=== PATIENT | female | born 1985 | race Hispanic/Latino ===

== ENCOUNTER 2017-08-30 20:21 | Emergency (ER) | payer SELFPAY ==
[2017-08-30 21:28] LABS: Bilirubin Negative (Negative); Blood, Urine Negative (Negative); Glucose, Urine (Dipstick) Negative (Negative); Ketone, Urine Negative (Negative); Nitrite Negative (Negative); Protein, Urine (Dipstick) Negative (Neg-Trace)
[2017-08-30 22:03] LABS: #Eosinphils 0.1 thou/uL (0.0-0.7); #Lymphocytes 2.4 thou/uL (1.20-3.40); #Monocytes 0.4 thou/uL (0.11-0.59); #Neutrophils 2.9 thou/uL (1.40-6.50); %Basophils 0.8 % (0.0-1.0); %Eosinophils 1.6 % (0.0-10.0); %Lymphocytes 40.7 % (21.0-51.0); %Monocytes 6.3 % (0.0-10.0); Hematocrit 26.9 % (36.0-47.0); Mean Platelet Volume 11.7 fL (7.4-10.4); Red Blood Cell (RBC) Count 3.78 mill/uL (4.20-5.40); White Blood Cell (WBC) Count 5.8 thou/uL (4.8-10.8)
[2017-08-30 22:20] LABS: ALT (SGPT) 50 U/L (8-55); AST (SGOT) 59 U/L (5-34); Alkaline Phosphatase 73 U/L (40-150); Anion Gap 8 mmol/L (10-20); BUN (Urea Nitrogen) 13 mg/dL (7.0-18.7); Bilirubin, Total 0.2 mg/dL (0.2-1.2); Calc. Creatinine Clearance 0 mL/min (70-130); Calcium 8.9 mg/dL (7.8-10.44); Carbon Dioxide 25 mmol/L (22-29); Chloride 106 mmol/L (98-107); Estimated GFR-MDRD Greater than 90; Lipase 39 U/L (8-78); Protein, Total 7.1 g/dL (6.0-8.3)
[2017-08-31] MEDS ORDERED: HYDROcodone/Acetaminophen 10/325 mg Tablet ONE (02:03)
== END 2017-08-31 03:04 | disposition home or self-care (01) ==
LOC: ERS 20:21
DX: R10.32 Left lower quadrant pain (principal)
CPT/HCPCS: 36415; 80053; 81003; 81025; 82150; 83690; 85025; 87480; 87491; 87510; 87591; 87660; 99284

== ENCOUNTER 2017-12-30 21:50 | Inpatient (IN) | payer SELFPAY ==
[2017-12-30 23:04] LABS: BHCG - Serum Negative (NEGATIVE); Pregs Control Background? CLEAR/WHITE (CLR/WHITE); Pregs Control Bar Appear? YES (CONTROL BAR)
[2017-12-30] MEDS ORDERED: Morphine 4 MG/ML VIAL ONE (23:10)
[2017-12-30] MEDS ORDERED: Ondansetron ODT 4 MG TAB ONE (23:10)
[2017-12-30] MEDS ORDERED: Acetaminophen 500 MG TAB ONE (23:10)
[2017-12-30 23:11] LABS: ALT (SGPT) 20 U/L (8-55); AST (SGOT) 63 U/L (5-34); Albumin 4.6 g/dL (3.5-5.0); Alkaline Phosphatase 130 U/L (40-150); Anion Gap 15 mmol/L (10-20); BUN (Urea Nitrogen) 8 mg/dL (7.0-18.7); Bilirubin, Total 0.3 mg/dL (0.2-1.2); Calc. Creatinine Clearance 0 mL/min (70-130); Calcium 9.3 mg/dL (7.8-10.44); Carbon Dioxide 18 mmol/L (22-29); Chloride 105 mmol/L (98-107); Estimated GFR-MDRD Greater than 90; Globulin 3.7 g/dL (2.4-3.5); Glucose 89 mg/dL (70-105); Lipase 78 U/L (8-78); Potassium 3.2 mmol/L (3.5-5.1); Protein, Total 8.3 g/dL (6.0-8.3); Sodium 135 mmol/L (136-145)
[2017-12-30 23:20] LABS: #Eosinphils 0.1 thou/uL (0.0-0.7); #Lymphocytes 3.3 thou/uL (1.20-3.40); #Monocytes 0.3 thou/uL (0.11-0.59); #Neutrophils 5.1 thou/uL (1.40-6.50); %Basophils 0.5 % (0.0-1.0); %Eosinophils 0.8 % (0.0-10.0); %Lymphocytes 37.5 % (21.0-51.0); %Monocytes 2.8 % (0.0-10.0); %Neutrophils 58.4 % (42.0-75.0); Hypochromia MODERATE=16-30 cells (100X) (0-5/hpf); MDiff Complete? YES; Mean Corpuscular HGB CONC 31.6 g/dL (32.0-36.0); Mean Corpuscular Hemoglobin 21.7 pg (27.0-31.0); Mean Corpuscular Volume 68.9 fl (81.0-99.0); Mean Platelet Volume 8.2 fL (7.4-10.4); Microcytosis SLIGHT = 6-15 cells (100X) (0-5/hpf); PLT Morphology Comment Appears Adequate; Platelet Count 248 thou/uL (130-400); Polychromasia SLIGHT = 2-3 cells (100X) (0-2/hpf); RBC Distribution Width 17.6 % (11.5-14.5); Red Blood Cell (RBC) Count 4.59 mill/uL (4.20-5.40); Reflex for Review?? YES; White Blood Cell (WBC) Count 8.8 thou/uL (4.8-10.8)
[2017-12-30 23:27] LABS: Bilirubin Negative (Negative); Blood, Urine Small (Negative); Clarity CLEAR (Clear); Glucose, Urine (Dipstick) Negative (Negative); Leukocyte Negative (Negative); Nitrite Negative (Negative); Protein, Urine (Dipstick) Negative (Neg-Trace); Specific Gravity, Urine 1.003 (1.002-1.036); pH, Urine 6.5 (5.0-9.0)
[2017-12-30 23:29] LABS: Bacteria/HPF 4+ HPF (None Seen); Hyaline Casts/LPF 0-3 HYALINE CAST LPF (0-3 Hyaline); RBC/HPF 0-3 HPF (0-3); Squamous Epithelial None Seen HPF (0-3); WBC/HPF 0-3 HPF (0-3)
[2017-12-30] MEDS ORDERED: Ondansetron ODT 8 MG TAB ONE (23:53)
[2017-12-30] MEDS ORDERED: Dicyclomine 20 MG TAB ONE (23:57)
[2017-12-30] MEDS ORDERED: Potassium Chloride 20 MEQ TAB ONE (23:57)
[2017-12-31 04:36] VITALS: BMI 23.9
[2017-12-31] MEDS ORDERED: Sodium Chloride 0.9% 1,000 ML IV SCH (06:24)
[2017-12-31] MEDS ORDERED: Diabetic Tussin 200 MG/10 ML UDCUP PO PRN (07:36)
[2017-12-31] MEDS ORDERED: Loratadine 10 MG TAB PO PRN (07:36)
[2017-12-31] MEDS ORDERED: Loperamide HCl 2 MG CAP PO PRN (07:36)
[2017-12-31] MEDS ORDERED: Chloraseptic Spray 180 ml Bottle PO PRN (07:36)
[2017-12-31] MEDS ORDERED: Artificial Tears 18 DROP/0.9 ML EA EYE PRN (07:36)
[2017-12-31] MEDS ORDERED: HYDROcodone/Acetaminophen 5/325 mg Tablet PO PRN (07:36)
[2017-12-31] MEDS ORDERED: Mag-Al 1200 mg/1200 mg/30 ML UDCUP PO PRN (07:36)
[2017-12-31] MEDS ORDERED: Acetaminophen 325 MG TAB PO PRN (07:36)
[2017-12-31] MEDS ORDERED: Senokot 8.6 MG TAB PO PRN (07:36)
[2017-12-31] MEDS ORDERED: Sodium Chloride 0.65% Nasal 44 ML BOT EA NARE PRN (07:36)
[2017-12-31] MEDS ORDERED: Ondansetron ODT 4 MG TAB PO PRN (07:36)
[2017-12-31] MEDS ORDERED: Milk Of Magnesia 30 ML UDCUP PO PRN (07:36)
[2017-12-31] MEDS ORDERED: Eucerin (Mineral Oil/Petrolatum,White) 30 gm Jar TOP PRN (07:36)
[2017-12-31] MEDS ORDERED: Ondansetron HCl/PF 4 MG/2 ML Vial IVP PRN (07:36)
[2017-12-31] MEDS ORDERED: Zolpidem Tartrate 5 MG TAB PO PRN (07:36)
[2017-12-31] MEDS: Pantoprazole 40 MG VIAL IVP SCH ×2 (08:36→21:35)
[2017-12-31] MEDS: D5 0.9% NS w/ 20 mEq KCl 1,000 ML IV SCH ×3 (08:36→21:45)
[2017-12-31] MEDS ORDERED: Enoxaparin Sodium 40 MG/0.4 ML SYRINGE SC SCH (09:00)
[2017-12-31 09:37] LABS: Iron 28 ug/dL (50-170); Iron Binding Capacity, Total 379 mcg/dL (265-497)
[2017-12-31] MEDS ORDERED: SODIUM CHLORIDE IVPB SCH (11:45)
[2017-12-31] MEDS ORDERED: ADMIXTURE FEE IVPB SCH (11:45)
[2017-12-31] MEDS ORDERED: SODIUM FERRIC GLUCONATE IVPB SCH (11:45)
--- NOTE | 2017-12-31 12:35 | CT ---
PRELIMINARY REPORT/[facility]/EMERGENTY AFTER-HOURS PROCEDURE CT Abdomen and Pelvis With Intravenous Contrast EXAM DATE/TIME: Exam ordered 12/31/2017 1:54 AM CLINICAL HISTORY: 32 years old, female; Pain; Abdominal pain; Epigastric; Prior surgery; Patient HX: Er 5; 32 y/o f wit h presentation of abd pain that started today. Pt reports that pt substantially worsened for approxim ately x1 minute, resolved, and then worsened again. Pt reports nausea and dysuria. Denies any other complaints. Abdomen soft, tender, to the epigastric region, suprapubic. Surgical history of cholecystectomy, ectopic preg, , surgical history of section TECHNIQUE: Axial computed tomography images of the abdomen and pelvis with intravenous contrast. Coronal reforma tted images were created and reviewed. COMPARISON: No relevant prior studies available. FINDINGS: Lung bases: Unremarkable. No mass. No consolidation. ABDOMEN: Liver: Periportal edema. Gallbladder and bile ducts: Prior cholecystectomy. No ductal dilation. Pancreas: Unremarkable. No mass. No ductal dilation. Spleen: Unremarkable. No splenomegaly. Adrenals: Unremarkable. No mass. Kidneys and ureters: Unremarkable. No solid mass. No hydronephrosis. Stomach and bowel: Unremarkable. No obstruction. No mucosal thickening. Appendix: Normal appendix. PELVIS: Bladder: Unremarkable. No mass. Reproductive: 1.4 cm collapsed luteal cyst remnant in the left ovary. ABDOMEN and PELVIS: Intraperitoneal space: Physiologic amount of free fluid in the pelvis. No free air. Bones/joints: No acute fracture. No dislocation. Soft tissues: Unremarkable. Vasculature: Unremarkable. No abdominal aortic aneurysm. Lymph nodes: Unremarkable. No enlarged lymph nodes. IMPRESSION: 1. There is periportal edema which is likely secondary to IV fluid administration given that the IVC is distended; however, nonspecific hepatic dysfunction, such as from hepatitis, can also cause periporta l edema. 2. 1.4 cm collapsed luteal cyst remnant in the left ovary. Thank you for allowing us to participate in the care of your patient. Dictated and Authenticated by: Brian Contreras MD 12/31/2017 2:35 AM Central Time ([place] & [place]) FINAL REPORT CT ABDOMEN AND PELVIS WITH CONTRAST: Date: 12/31/17 HISTORY: Nausea, vomiting, abdominal pain, and hypotension. COMPARISON: Exam from 2013. FINDING/IMPRESSION: Findings and impression are concordant with the preliminary report by Femi. POS: [facility]
[2017-12-31] MEDS ORDERED: Morphine 4 MG/ML VIAL IV PRN (12:42)
--- NOTE | 2017-12-31 13:10 | HP ---
PRIMARY CARE PHYSICIAN: [place] call admission. REASON FOR ADMISSION: Abdominal pain, intractable nausea, vomiting, dehydration, hypotension. 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 The patient was predominantly having epigastric pain, burning in nature and some cramps. e patient was also in menstrual period. She was experiencing back pain as well. She tried her home medication, which was not helping. She took Tylenol No. 3 without any significant relief, but after that her pain had gotten worse. She was also having nausea and vomiting, and she was not able to torey p down. She was also experiencing dysuria, but she did not notice any hematuria. She did not have a ny fever or chills. She denies any antibiotic exposure. She denies any diarrhea. She denies any me agustin, hematochezia or hematemesis. She denies any flu-like illness. She denies any recent sick expo sures. She denies any recent travel. She does not have any drug abuse history. She denies any [facility] herbal medication. She denies any similar problem in the past. She never had any blood transfusi on in the past. She denies any recent viral infection. ALLERGIES: The patient denies any drug allergy. CURRENT HOME MEDICATIONS: The patient is not taking any prescribed or non-prescribed medication. e patient is also not taking any iron supplement. She took Tylenol No. 3, which she had from past, b ut the patient reports that she usually does not take any medication unless absolutely necessary. REVIEW OF SYSTEMS: Please see my HPI for pertinent positive and negative. All other review of syste m reviewed and negative except as mentioned in the HPI. Constitutional: Weight loss or gain, ability to conduct usual activities. Skin: Rash, itching. Eyes: Double vision, pain. ENT/Mouth: Nose bleeding, neck stiffness, pain, tenderness. Cardiovascular: Palpitations, dyspnea on exertion, orthopnea. Respiratory: Shortness of breath, wheezing, cough, hemoptysis, fever or night sweats. Gastrointestinal: Poor appetite, abdominal pain, heartburn, nausea, vomiting, constipation, or diarrhea. Genitourinary: Urgency, frequency, dysuria, nocturia. Musculoskeletal: Pain, swelling. Neurologic/Psychiatric: Anxiety, depression. Allergy/Immunologic: Skin rash, bleeding tendency. PAST MEDICAL HISTORY: Chronic iron deficiency anemia. Normally runs low blood pressure. PAST SURGICAL HISTORY: Cholecystectomy, surgery for ectopic , x3. PAST PSYCHIATRIC HISTORY: Reviewed and negative. SOCIAL HISTORY: The patient is and lives at home with her family. No history of tobacco, al cohol or illicit drug abuse. FAMILY HISTORY: No strong family history of premature coronary artery disease, stroke or cancer. EMERGENCY ROOM COURSE: The patient was given morphine 4 mg IV push and IV fluid 2 liter, potassium c hloride 40 mEq, Bentyl 20 mg p.o. Zofran 8 mg and 4 mg, and Tylenol 1 gram. PHYSICAL EXAMINATION: VITAL SIGNS: On arrival, blood pressure 92/60, pulse 65, respiratory rate 18, temperature 97.8, satu ration 100% on room air, weight 52.2 kilograms. GENERAL: The patient is currently alert, awake, no obvious acute distress. HEAD: Normocephalic, atraumatic. EYES: Pupils round, reactive to light. Extraocular muscle intact. ENT: Oropharynx within normal limits, somewhat dry appearing mucous membrane, no oral lesion, no pha ryngeal erythema, no exudate. NECK: Supple, no JVD, no thyromegaly, no carotid bruit, no jugular venous distention. LUNGS: Clear to auscultation without any rhonchi or rales. CARDIAC: S1, S2 regular without any murmur. ABDOMEN: The patient does not have any Oreilly sign. She has mild discomfort in epigastric region on deep palpation. She does not have any suprapubic tenderness. She does not have any peritoneal sign s, guarding, rigidity. Her bowel sounds present. No organ is palpable. BACK: Unremarkable. No CVA tenderness. EXTREMITIES: Upper extremity: Passive movements of all joints are normal. Lower extremities: No e jacob. Good peripheral pulsation. SKIN: No skin rash. HEMATOLOGICAL: No lymphadenopathy. PSYCHIATRIC: Normal affect. SIGNIFICANT LABS: 1. gambling monitor showing normal sinus rhythm without any ischemic changes. test negat jeffrey. Lipase 78. 2. BMP: Sodium 135, potassium 3.2, chloride 105, carbon dioxide 18, anion gap 15, BUN 8, creatinine 0.73, glucose 89, calcium 9.3. 3. LFT: Protein 8.3, albumin 4.6, AST 63, ALT 20, alkaline phosphatase 130. CBC: WBC 8.8, hemoglo bin 12.0, MCV 68.9, platelet 248. Urinalysis showing blood small and bacteria 4+. ASSESSMENT AND PLAN: 1. Acute abdominal pain, predominantly epigastric region associated with nausea and vomiting. At th is point, etiology is uncertain. CT of the abdomen and pelvis is obtained and reviewed by me, but I am not able to find any acute process. The patient does not have any surgical abdomen. The patient will be given Protonix 40 mg IV q.12 hourly. GI already consulted by ER physician. We will control her pain with morphine p.r.n. basis if needed. 2. Iron deficiency anemia. This patient has hemoglobin 10.0 and MCV low. Iron study done today and it is consistent with iron deficiency anemia. The patient will need ferrous sulfate 325 mg p.o. b.i .d. upon discharge and we will give her one dose of ferric gluconate. Most likely the patient's anem ia is related with chronic blood loss with her menstrual period and poor p.o. iron supplementation. 3. Dehydration. The patient will be given gentle IV fluid and we will repeat labs tomorrow. 4. Mild hyponatremia, hypochloremia, and mild metabolic acidosis likely related with dehydration. T he patient will be given IV fluid with potassium and will repeat labs tomorrow. 5. Asymptomatic bacteriuria. Currently, the patient is menstrual period. She does not have any fev er and does not have any obvious urinary tract infection symptoms. We will send urine culture only a nd avoid antibiotic therapy at this point. 6. Intractable nausea and vomiting. We will treat with Protonix as well as nausea, vomiting with Zo bola on p.r.n. basis. We will monitor for her tolerance to p.o. and then we will consider discharge. 7. Mild transaminitis. CT abdomen was obtained, official report is pending. At this point, the pat ient's LFT is not supportive of acute hepatitis. We will repeat LFTs tomorrow. 8. Deep venous thrombosis prophylaxis. The patient only needs SCD boots. We will avoid Lovenox bec ause of anemia and menstrual period. The patient is advised to ambulate herself in hospital. The pa tient is low risk for deep venous thrombosis. 9. Gastrointestinal prophylaxis. The patient is already on Protonix therapy. 10. Code status: The patient is FULL CODE. The patient's is surrogate decision maker. Disposition plan based on clinical course. We are expecting patient's stay in hospital for more than 24 hours. Plan of care discussed with the patient and her bedside.
[2017-12-31] MEDS ORDERED: ISOVUE-370 76%-LOCM 1 ML ONE (14:12)
--- NOTE | 2017-12-31 18:38 | CON ---
DATE OF CONSULTATION: 12/31/2017 REQUESTING PHYSICIAN: Dr. Friedman. REASON FOR CONSULTATION: Abdominal pain. HISTORY OF PRESENT ILLNESS: Rosa Maria Bonner is a very pleasant 32-year-old woman with no significant pas t medical history. She does have a history of cholecystectomy as well as ectopic removal a nd 3 C-sections. She has this history of chronic iron deficiency anemia which has been attributed to menstrual losses as well. She does not take any medications. She has no prior gastrointestinal his tory. She says she was doing well in her normal state of health until late yesterday. She was havin g some lower abdominal cramping discomfort from having started her menses and she took a Tylenol #3. Shortly thereafter, she started feeling some dysphoria and then began to have some acute burning and tightness pain in the epigastrium. This waxed and waned for several hours, but then became signific antly more severe. She started having nausea and multiple episodes of emesis, which prompted her pre sentation to the emergency department, she had several more episodes of emesis in the ER, she has bee n treated now with antiemetics and IV fluids. Over the past 6-8 hours and feeling a lot better, she is getting her appetite back. No abdominal discomfort at this time. Lab evaluation demonstrates her chronic anemia with hemoglobin 10 which is actually a bit above her baseline. She is iron deficient with a ferritin 4.89, AST is mildly elevated at 63 with otherwise normal LFTs, normal lipase. A CT of the abdomen and pelvis was performed which just showed some periportal edema which is likely secon deepak to IV fluid administration was otherwise negative. The patient has no other complaints. She herrera s been afebrile. She has been hemodynamically stable. REVIEW OF SYSTEMS: Full review of systems including constitutional, head, eyes, ears, nose, throat, GI, , cardiovascular, respiratory, musculoskeletal, and neurologic systems is negative except as no luke in HPI. PAST MEDICAL HISTORY: Cholecystectomy, ectopic removal, x3, iron deficiency anem ia. ALLERGIES: No known drug allergies. OUTPATIENT MEDICATIONS: None. INPATIENT MEDICATIONS: Tylenol p.r.n., Protonix 40 mg IV q.12 hours and Zofran p.r.n. FAMILY HISTORY: Noncontributory. SOCIAL HISTORY: No smoking, alcohol, or drug use. PHYSICAL EXAMINATION: VITAL SIGNS: Temperature 97.7, pulse 62, blood pressure 93/58, 99% oxygen saturation on room air. GENERAL: A 32-year-old woman lying in bed comfortably in no acute distress. SKIN: No jaundice, no rash visible or palpable. EYES: No scleral icterus. Extraocular movements are intact. ENT: Mucous membranes moist, no oral lesions. LYMPH: No submandibular, supraclavicular lymphadenopathy. THYROID: Nontender to palpation. HEART: Regular rate and rhythm. LUNGS: Clear to auscultation bilaterally. ABDOMEN: Bowel sounds present, soft and nontender to palpation throughout. EXTREMITIES: No peripheral edema. VESSELS: Radial pulses 2+ bilaterally. NEUROLOGICAL: Cranial nerves II-XII intact bilaterally. No focal deficits. LABORATORY STUDIES: WBC 8.8, hemoglobin 10.0, MCV 68.9, platelets 248, BUN 8, creatinine 0.73. Ferr itin 4.89. Iron 28, TIBC 379. Serum test negative. Lipase normal at 78, total bilirubin 0.3, alkaline phosphatase 130, AST 63, ALT 20, albumin 4.6. IMAGING STUDIES: CT of the abdomen and pelvis showed some periportal edema which is likely secondary to IV fluid administration. CT is otherwise negative. ASSESSMENT AND PLAN: 1. Acute epigastric pain. 2. Acute nausea and vomiting. 3. Chronic iron deficiency anemia. The etiology of the patient's acute symptoms is unknown. This seems to come on right after taking Ty lenol #3, though she has taken this before without such symptoms, especially given her chronic iron d eficiency anemia, I think it would be reasonable to perform EGD at some point to rule out peptic ulce r disease. We will plan for EGD tomorrow morning. Please have the patient n.p.o. after midnight. A gree with the empiric PPI in the meantime. Thank you for the consultation. Please call with questions or concerns.
[2018-01-01 05:15] LABS: #Eosinphils 0.1 thou/uL (0.0-0.7); #Lymphocytes 2.3 thou/uL (1.20-3.40); #Monocytes 0.3 thou/uL (0.11-0.59); #Neutrophils 3.1 thou/uL (1.40-6.50); %Basophils 0.8 % (0.0-1.0); %Eosinophils 1.1 % (0.0-10.0); %Lymphocytes 39.8 % (21.0-51.0); %Monocytes 4.6 % (0.0-10.0); %Neutrophils 53.7 % (42.0-75.0); Hemoglobin 8.3 g/dL (12.0-16.0); Mean Corpuscular HGB CONC 30.5 g/dL (32.0-36.0); Mean Corpuscular Hemoglobin 21.9 pg (27.0-31.0); Mean Platelet Volume 10.9 fL (7.4-10.4); Platelet Count 220 thou/uL (130-400); RBC Distribution Width 17.5 % (11.5-14.5); Red Blood Cell (RBC) Count 3.79 mill/uL (4.20-5.40); White Blood Cell (WBC) Count 5.9 thou/uL (4.8-10.8)
[2018-01-01 05:23] LABS: ALT (SGPT) 75 U/L (8-55); AST (SGOT) 70 U/L (5-34); Albumin 3.4 g/dL (3.5-5.0); Alkaline Phosphatase 128 U/L (40-150); Anion Gap 8 mmol/L (10-20); BUN (Urea Nitrogen) 4 mg/dL (7.0-18.7); Bilirubin, Total 0.3 mg/dL (0.2-1.2); Calc. Creatinine Clearance 121 mL/min (70-130); Calcium 8.5 mg/dL (7.8-10.44); Carbon Dioxide 21 mmol/L (22-29); Chloride 115 mmol/L (98-107); Estimated GFR-MDRD Greater than 90; Globulin 2.6 g/dL (2.4-3.5); Glucose 99 mg/dL (70-105); Potassium 3.8 mmol/L (3.5-5.1); Sodium 140 mmol/L (136-145)
[2018-01-01 07:27] VITALS: TEMP 98.1
[2018-01-01] MEDS: D5 0.9% NS w/ 20 mEq KCl 1,000 ML IV SCH (07:45)
[2018-01-01] MEDS ORDERED: Sodium Ferric Gluconate 250 MG in Sodium Chloride 0.9% 250 ML 250 ML IVPB SCH (08:00)
[2018-01-01] MEDS ORDERED: Ondansetron HCl/PF 4 MG/2 ML Vial IVP PRN (08:56)
[2018-01-01] MEDS ORDERED: Promethazine HCl 25 MG/ML VIAL IM PRN (08:56)
[2018-01-01] MEDS ORDERED: Promethazine HCl 25 MG/ML VIAL SLOW IVP PRN (08:56)
[2018-01-01] MEDS: Pantoprazole 40 MG VIAL IVP SCH (09:24)
--- NOTE | 2018-01-01 10:18 | PDOC.PN ---
- Subjective Encounter Start Date: 01/01/18 Encounter Start Time: 08:00 -: old records requested/rev Patient seen and examined. No new complaints. No overnight events - Objective Resuscitation Status: Resuscitation Status FULL:Full Resuscitation MAR Reviewed: Yes Vital Signs & Weight: Vital Signs (12 hours) Temp Pulse Resp BP Pulse Ox 01/01/18 07:25 98.1 F 59 L 16 93/52 L 100 01/01/18 03:58 97.5 F L 68 18 91/51 L 98 01/01/18 00:36 100 Weight Weight 119 lb 12.8 oz I&O: 12/31/17 01/01/18 01/02/18 06:59 06:59 06:59 Intake Total 2225 Output Total 2300 Balance -75 Result Diagrams: 01/01/18 04:24 01/01/18 04:24 EKG Reviewed by me: Yes (nsr) Phys Exam - Physical Examination Constitutional: NAD HEENT: PERRLA, moist MMs, sclera anicteric Neck: no JVD, supple Respiratory: no wheezing, no rales, no rhonchi Cardiovascular: RRR, no significant murmur, no rub Gastrointestinal: soft, non-tender, no distention, positive bowel sounds Musculoskeletal: no edema, pulses present Neurological: non-focal, normal sensation, moves all 4 limbs Lymphatic: no nodes Psychiatric: normal affect, A&O x 3 Skin: no rash, normal turgor Dx/Plan (1) Abdominal pain Code(s): R10.9 - UNSPECIFIED ABDOMINAL PAIN Status: Resolved Qualifiers: Abdominal location: epigastric Qualified Code(s): R10.13 - Epigastric pain (2) Hypokalemia Code(s): E87.6 - HYPOKALEMIA Status: Resolved (3) Hyponatremia Code(s): E87.1 - HYPO-OSMOLALITY AND HYPONATREMIA Status: Resolved (4) Intractable nausea and vomiting Code(s): R11.2 - NAUSEA WITH VOMITING, UNSPECIFIED Status: Resolved (5) Microcytic anemia Code(s): D50.9 - IRON DEFICIENCY ANEMIA, UNSPECIFIED Status: Acute - Plan cont current plan of care, plan discussed w/ family * iron infusion today * s/p EGD * stable for discharge * medication reviewed as below * symptomatic treatment. Review of Systems - Review of Systems Eyes: negative: Pain, Vision Change, Conjunctivae Inflammation, Eyelid Inflammation, Redness, Other ENT: negative: Ear Pain, Ear Discharge, Nose Pain, Nose Discharge, Nose Congestion, Mouth Pain, Mouth Swelling, Throat Pain, Throat Swelling, Other Respiratory: negative: Cough, Dry, Shortness of Breath, Hemoptysis, SOB with Excertion, Pleuritic Pain, Sputum, Wheezing Cardiovascular: negative: chest pain, palpitations, orthopnea, paroxysmal nocturnal dyspnea, edema, light headedness, other Gastrointestinal: negative: Nausea, Vomiting, Abdominal Pain, Diarrhea, Constipation, Melena, Hematochezia, Other Genitourinary: negative: Dysuria, Frequency, Incontinence, Hematuria, Retention , Other Musculoskeletal: negative: Neck Pain, Shoulder Pain, Arm Pain, Back Pain, Hand Pain, Leg Pain, Foot Pain, Other Skin: negative: Rash, Lesions, Dean, Bruising, Other - Medications/Allergies Allergies/Adverse Reactions: Allergies Allergy/AdvReac Type Severity Reaction Status Date / Time No Known Allergies Allergy Verified 12/31/17 04:31 Medications: Current Medications Acetaminophen (Tylenol) 650 mg PO Q4H PRN PRN Reason: Headache/Fever or Pain Last Admin: 12/31/17 10:45 Dose: 650 mg Hydrocodone Bitart/Acetaminophen ([place]quel 5/325) 1 tab PO Q4H PRN PRN Reason: Moderate Pain (4-6) Al Hydroxide/Mg Hydroxide (Maalox) 30 ml PO Q6H PRN PRN Reason: Heartburn or Indigestion Artificial Tears (Tears Naturale) 0 drop EA EYE PRN PRN PRN Reason: Dry Eyes Guaifenesin (Robitussin Sf) 200 mg PO Q4H PRN PRN Reason: Cough Potassium Chloride/Dextrose/Sod Cl (D5 0.9% Ns W/ 20 Meq Kcl) 1,000 mls @ 125 mls/hr IV .Q8H ESTEPHANIA Last Admin: 01/01/18 07:45 Dose: Not Given Loperamide HCl (Imodium) 2 mg PO PRN PRN PRN Reason: Diarrhea/Loose Stools Loratadine (Claritin) 10 mg PO DAILYPRN PRN PRN Reason: Sinus Symptoms Magnesium Hydroxide (Milk Of Magnesium) 30 ml PO DAILYPRN PRN PRN Reason: Constipation Mineral Oil/White Petrolatum (Eucerin Cream) 0 gm TOP BIDPRN PRN PRN Reason: Dry Skin Morphine Sulfate (Morphine) 2 mg IV Q4H PRN PRN Reason: Pain Ondansetron HCl (Zofran Odt) 4 mg PO Q6H PRN PRN Reason: Nausea/Vomiting Ondansetron HCl (Zofran) 4 mg IVP Q6H PRN PRN Reason: Nausea/Vomiting Ondansetron HCl (Pacu-Zofran) 4 mg IVP ONE PRN PRN Reason: Nausea/Vomiting Stop: 01/01/18 11:56 Pantoprazole Sodium (Protonix) 40 mg IVP Q12HR [facility] Last Admin: 01/01/18 09:24 Dose: 40 mg Phenol (Chloraseptic Avella 180 Ml Bot) 0 ml PO PRN PRN PRN Reason: Sore Throat Promethazine HCl (Pacu-Phenergan) 6.25 mg SLOW IVP ONE PRN PRN Reason: Nausea/Vomiting Stop: 01/01/18 11:56 Promethazine HCl (Pacu-Phenergan) 6.25 mg IM ONE PRN PRN Reason: Nausea/Vomiting Stop: 01/01/18 11:56 Senna (Senokot) 2 tab PO HSPRN PRN PRN Reason: Constipation Sodium Chloride ([place] Nasal Avella 0.65%) 0 ml EA NARE QIDPRN PRN PRN Reason: Nasal Congestion Sodium Chloride (Flush - Normal Saline) 10 ml IVF Q12HR [facility] Last Admin: 01/01/18 09:24 Dose: 10 ml Sodium Chloride (Flush - Normal Saline) 10 ml IVF PRN PRN PRN Reason: Saline Flush Zolpidem Tartrate (Ambien) 5 mg PO HSPRN PRN PRN Reason: Insomnia
--- NOTE | 2018-01-01 10:20 | OP ---
SURGEON: Manuel Hollis M.D. RECEIVER BULK SYSTEM SURGEON: None. PROCEDURE: Esophagogastroduodenoscopy, diagnostic. INDICATIONS: 1. Acute epigastric pain. 2. Acute nausea and vomiting. 3. Chronic iron deficiency anemia. MEDICATIONS: See anesthesia record. FINDINGS: After discussion of the risks, benefits and alternatives of the procedure, informed consen t was obtained and witnessed. Pre-endoscopic cardiopulmonary examination was satisfactory. Timeout was performed before sedation was achieved. Sedation was achieved with anesthesia assistance in the endoscopy unit. A Pentax adult upper endoscope was placed into the oropharynx and passed through the cricopharyngeus under direct visualization. The esophageal mucosa appeared normal throughout with a normal-appearing Z-line. The endoscope was then advanced into the stomach. Forward and retroflexed views of the entire gastric mucosa were obtained. The gastric mucosa appeared normal throughout. T he endoscope was advanced through the pylorus and into the first and second portions of the duodenum, which also appeared normal. The upper endoscope was then completely withdrawn and the patient allow ed to recover. The patient tolerated the procedure well. There were no immediate post-procedure com plications. IMPRESSION: Normal esophagogastroduodenoscopy. RECOMMENDATIONS: 1. Advance diet. 2. Okay for hospital discharge from a GI perspective. 3. We will have her followup in the GI clinic in 2-3 weeks.
[2018-01-01 11:05] VITALS: BP 109/53
[2018-01-01] MEDS ORDERED: Lidocaine 1% PF 5 ML VIAL ONE (11:37)
[2018-01-01] MEDS ORDERED: PROPOFOL 200 MG/20 ML VIAL ONE (11:37)
--- NOTE | 2018-01-01 12:39 | DIS ---
DATE OF ADMISSION: 12/31/2017 DATE OF DISCHARGE: 01/01/2018 PRIMARY CARE PHYSICIAN: [facility] call admission. DISCHARGE DISPOSITION: Home. PRIMARY DISCHARGE DIAGNOSES: Acute epigastric abdominal pain improved, hypokalemia corrected, hypona tremia corrected, intractable nausea and vomiting, resolved. SECONDARY DISCHARGE DIAGNOSIS: Chronic iron deficiency anemia. PRIMARY PROCEDURE/OPERATION: EGD was normal. RADIOLOGICAL INVESTIGATION: Abdomen and pelvis CT scan was unremarkable. SIGNIFICANT LABORATORY DATA: WBC 5.9, hemoglobin 8.3, platelet 220. Sodium 140, potassium 3.8, BUN 4, and creatinine 0.58. Ferritin 4.89, AST 70, ALT 75, and albumin 3.4. Hepatitis profile negative. Lipase normal. Urinalysis normal. DISCHARGE MEDICATIONS: Protonix 40 mg p.o. daily, Zofran 4 mg q.6 hourly p.r.n. for nausea, and ferr ous sulfate 325 mg p.o. b.i.d. CONTRAINDICATIONS: None. CODE STATUS: FULL CODE. INPATIENT CABIN CREW: Dr. Hollis who did EGD. TEST RESULTS PENDING ON DISCHARGE: None. ALLERGIES: No known drug allergy. DISCHARGE PLAN: Post hospital, patient will follow up with Dr. Hollis as instructed. The patient will follow up with primary care physician. HOSPITAL COURSE: A 32-year-old female with no significant medical history who came to ER with acute epigastric abdominal pain, nausea, and vomiting. Patient was hypotensive and she was clinically dehy drated. Patient was requiring more treatment while in hospital and that is why she was admitted from the ER. We consulted disposal man and they did upper endoscopy and upper endoscopy was normal . Patient was treated symptomatically with Protonix, Zofran, and IV fluid. Her dehydration was ford ected. Her abnormal electrolytes were corrected. Her symptomatology completely improved. The patie nt has iron deficiency anemia and that is why she was given 2 doses of iron infusion while in [facility] as well as the patient is instructed to take oral iron supplements after discharge. The patient is completely asymptomatic and she wants to go home today. The patient is seen and exami irene at bedside today. Please see my progress note from today for further detail.
== END 2018-01-01 13:01 | disposition home or self-care (01) | DRG 641 ==
LOC: ERS 21:50 → 2NO 12-31 03:24
PROVIDERS: ADMIT Internal Medicine; ATTEND Internal Medicine
PROC: 0DJ08ZZ Inspection of Upper Intestinal Tract, Via Natural or Artificial Opening Endoscopic (ICD-10-PCS; principal; 2018-01-01)
DX: E86.0 Dehydration (principal); E87.2 Acidosis; I95.9 Hypotension, unspecified; E87.8 Other disorders of electrolyte and fluid balance, not elsewhere classified; E87.1 Hypo-osmolality and hyponatremia; D50.9 Iron deficiency anemia, unspecified; R30.0 Dysuria; R74.0 Nonspecific elevation of levels of transaminase and lactic acid dehydrogenase [LDH]; E87.6 Hypokalemia
CPT/HCPCS: 36415; 74177; 80053; 81003; 81015; 82728; 83540; 83550; 83690; 84703; 85025; 85060; 96360; 96361; C9113; J1650; J2001; J2270; J2704; J2916; J7050; Q0162

== ENCOUNTER 2018-11-12 09:08 | Emergency (ER) | payer SELFPAY ==
[2018-11-12 10:06] LABS: Bilirubin Negative (Negative); Blood, Urine Negative (Negative); Clarity CLOUDY (Clear); Glucose, Urine (Dipstick) Negative (Negative); Leukocyte Trace (Negative); Nitrite Positive (Negative); Protein, Urine (Dipstick) Negative (Neg-Trace); Specific Gravity, Urine 1.016 (1.002-1.036)
[2018-11-12 10:07] LABS: Pregnancy Test - Urine (BHCG) Negative (Negative); Pregu Control Background? CLEAR/WHITE (CLR/WHITE); Pregu Control Bar Appear? YES (CONTROL BAR); Specific Gravity 1.016 (1.002-1.036)
[2018-11-12 10:08] LABS: Bacteria/HPF 4+ HPF (None Seen); Hyaline Casts/LPF 0-3 HYALINE CAST LPF (0-3 Hyaline); Pathc Cast-AUWi Flag 0.58 (0-2.49); RBC/HPF 0-3 HPF (0-3); Squamous Epithelial 0-3 HPF (0-3)
[2018-11-12 10:20] LABS: #Eosinphils 0.1 thou/uL (0.0-0.7); #Lymphocytes 1.4 thou/uL (1.20-3.40); #Monocytes 0.3 thou/uL (0.11-0.59); #Neutrophils 3.4 thou/uL (1.40-6.50); %Basophils 0.9 % (0.0-1.0); %Eosinophils 1.1 % (0.0-10.0); %Lymphocytes 26.9 % (21.0-51.0); %Monocytes 4.9 % (0.0-10.0); %Neutrophils 66.2 % (42.0-75.0); Hemoglobin 11.9 g/dL (12.0-16.0); Mean Corpuscular Hemoglobin 27.1 pg (27.0-31.0); Mean Corpuscular Volume 84.9 fL (78.0-98.0); Mean Platelet Volume 11.3 fL (7.4-10.4); Platelet Count 220 thou/uL (130-400); RBC Distribution Width 13.5 % (11.5-14.5); Red Blood Cell (RBC) Count 4.39 mill/uL (4.20-5.40); White Blood Cell (WBC) Count 5.2 thou/uL (4.8-10.8)
[2018-11-12 10:29] LABS: ALT (SGPT) 21 U/L (8-55); AST (SGOT) 18 U/L (5-34); Albumin 4.6 g/dL (3.5-5.0); Alkaline Phosphatase 90 U/L (40-150); Anion Gap 13 mmol/L (10-20); BUN (Urea Nitrogen) 10 mg/dL (7.0-18.7); Bilirubin, Total 0.4 mg/dL (0.2-1.2); Calc. Creatinine Clearance 0 mL/min (70-130); Calcium 9.4 mg/dL (7.8-10.44); Carbon Dioxide 21 mmol/L (22-29); Chloride 109 mmol/L (98-107); Estimated GFR-MDRD Greater than 90; Globulin 3.4 g/dL (2.4-3.5); Glucose 85 mg/dL (70-105); Lipase 23 U/L (8-78); Potassium 3.9 mmol/L (3.5-5.1); Sodium 139 mmol/L (136-145)
[2018-11-12] MEDS ORDERED: Ondansetron ODT 4 MG TAB ONE (11:04)
== END 2018-11-12 11:10 | disposition home or self-care (01) ==
LOC: ERS 09:08
DX: N39.0 Urinary tract infection, site not specified (principal)
CPT/HCPCS: 36415; 80053; 81003; 81015; 81025; 83690; 84443; 85025; 87077; 87086; 87186; 99284; Q0162